=== PATIENT | male | born 1955 | race Caucasian/White ===

== ENCOUNTER 2017-04-08 09:00 | Day surgery (SDC) | payer OTHER, SELFPAY ==
[2017-04-06 14:48] VITALS: BMI 38.4
[2017-04-08 09:27] VITALS: BP 157/93; PULSE 76; RESP 18; TEMP 36.8; O2SAT 94
--- NOTE | 2017-04-08 09:39 | HMH.ANESCL ---
[facility] Anesthesia Checklist - Patient Identification Patient Identification: Arm Band, Verbal (Name & ) - Structural Data Admitted From: Home Planned Operative Procedure/s: egd/ colon Consent for Planned Operative Procedure(s) Verified: Yes Verified Documents: Surgical Consent - NPO Status Verified Time NPO: 00:00 - Chart Verification Results Verified: CBC, BMP - Additional verifications Patient : No Anesthesia Reactions: No Hx Blood Transfusions: No Blood Transfusion Reaction: No Cephalosporin Allergy: No Previous Colonoscopy: No - Cardiovascular Assessment Heart Sounds: S1 & S2 Pulse Strength: Baseline Pulse Rhythm: Regular Peripheral Edema: No - Airway Assessment C-Spine Mobility Assessed: Yes TMJ Mobility Assessed: Yes Dentition: Dentures-good fit - Neurological Assessment Level of Consciousness: Awake, Alert, Appropriate Hx Seizures: No Numbness or tingling in extremities: No - Anesthesia Plan Anesthesia Risk discussed: Yes Anesthesia Plan: Verified ASA Class: III Anesthesia Type: [facility] Anesthesia HX I have reviewed the patient's past medical history: Yes Medical History: Reports:: Asthma, Hyperlipidemia, Hypertension Denies:: Diabetes Mellitus Type 1, Diabetes Mellitus Type 2, Lung Disease Other Medical History: Reports: Anemia Laterality Cases: Bilateral: Arthroscopy Knee Other Surgeries: Yes: Colonoscopy Amputation: No Fractures: No *Family Hx:: Unable to obtain
[2017-04-08 09:50] VITALS: O2SAT 98
[2017-04-08 09:50] LABS: Basophils % 0.2 % (0.1-2.0); Eosinophils # 0.2 K/mm3 (0.0-0.4); Eosinophils % 6.1 % (0.1-12.0); Hemoglobin 9.4 g/dL (14.1-18.0); Lymphocytes # 0.7 K/mm3 (0.7-4.5); Lymphocytes % 27.9 K/mm3 (10-50); Mean Corpuscular HGB Conc 30.3 g/dL (31.8-35.4); Mean Corpuscular Hemoglobin 23.8 pg (27.0-31.2); Mean Corpuscular Volume 78.5 fl (80-94); Mean Platelet Volume 7.8 fl (7.4-10.4); Monocytes # 0.2 K/mm3 (0.1-1.0); Monocytes % 8.8 % (1.7-9.3); Neutrophils # 1.5 K/mm3 (1.8-7.8); Neutrophils % 56.9 % (37.0-80.0); Platelet Count 80 K/mm3 (142-424); Red Blood Count 3.95 M/mm3 (4.60-6.20); Red Cell Distribution Width 16.2 % (11.5-17.5); White Blood Count 2.6 K/mm3 (4.8-10.8)
[2017-04-08 09:53] LABS: Anion Gap 11.8 mEq/L (5-15); Blood Urea Nitrogen 13 mg/dL (7-18); Carbon Dioxide 27 mmol/L (21.0-32.0); Chloride 104 mmol/L (98-107); Creatinine Clearance Estimated 117 mL/min (0-300); Creatinine,Serum 1.08 mg/dL (0.70-1.30); Estimated Glomerular Filt Rate 69 ml/min (>60); GFR (African American) 84 ML/MIN (>60); Glucose 98 mg/dL (74-106); Potassium 3.8 mmoL/L (3.5-5.1); Sodium 139 mmol/L (136-145)
--- NOTE | 2017-04-08 10:46 | P.PCN_ITS ---
- Procedure: Date: 04/08/17 Procedure Performed:: Esophagogastroduodenoscopy with biopsy Colonoscopy with polypectomy by means other than snare (biopsy) Indications:: This is a 61-year-old gentleman seen in consultation from Dr. Dykes for evaluation regarding anemia. Performing Provider:: Chace Bhardwaj MD Referring Provider:: Dr. Dykes Sedation:: Monitored anesthesia care Procedure:: After informed consent was obtained, the patient was taken to the endoscopy suite. Monitored anesthesia care ensued after he was transferred to the left lateral decubitus position. The gastroscope was advanced. The gastroesophageal junction was at 30 cm. Stomach was entered. The gastric mucosa did have a cobblestone type appearance. Mid gastric body biopsies were made. Streaking gastritis was noted distally and antral biopsies were obtained. Retroflexion revealed some inflammation but no other definitive abnormality. He did not have appropriate gastric relaxation and evaluation of the gastroesophageal junction (particularly in retroflexion) was very difficult and limited. The gastroscope was carefully removed. Digital rectal expelled a somewhat firm prostate but no definitive mass lesion was noted. The colonoscope was placed in position. The entire colon was evaluated. Bowel preparation was moderate to poor with large volume irrigation and suctioning used to improve visualization. A polyp at 25 cm is excised biopsy forceps. Adjacent polyps at 15 cm were excised with cold biopsy forceps. Polyp at 10 cm was excised with cold biopsy forceps. He did have hemorrhoidal cushions. No active bleeding or thrombosis was noted. He had fairly severe spasticity/lack of relaxation and this combined with limited bowel preparation made visualization difficult. The colonoscope was carefully removed and the patient was transferred to recovery. Findings:: Streaking gastritis cobblestone gastritis Gastroesophageal junction at 30 cm Lack of relaxation of gastric body leading to limited visualization Limited bowel preparation Spasticity and lack of relaxation of colon Hemorrhoidal cushions Firm prostate Polyp at 25 cm Adjacent polyps at 15 cm Polyp at 10 cm Specimens:: Antral biopsy Mid gastric body biopsy Polyp at 25 cm Adjacent polyps at 15 cm Polyp at 10 cm Recommendations:: Repeat colonoscopy is pending pathology but will likely be between 1-2 years secondary to limited visualization. UGI/SBFT and possible barium enema will be considered secondary to difficulty in visualization and for further evaluation and management of anemia. Possible capsule endoscopy. Complications:: No immediate Estimated blood obtained (mL): 1
[2017-04-08 10:55] VITALS: BP 114/94; PULSE 68; RESP 18; O2SAT 94
[2017-04-08 11:05] VITALS: BP 104/56; PULSE 62; RESP 18; O2SAT 96
[2017-04-08 13:29] VITALS: BP 104/65; PULSE 74; RESP 18; TEMP 36.5; O2SAT 94
== END 2017-04-08 11:05 | disposition home or self-care (01) ==
PROVIDERS: Family Provider Internal Medicine Adolescent Medicine; PCP Internal Medicine Adolescent Medicine; Visit Provider Surgery
PROC: 0DJ08ZZ Inspection of Upper Intestinal Tract, Via Natural or Artificial Opening Endoscopic (ICD-10-PCS; CPT 43235; principal; 2017-04-08 09:30)
DX: K29.60 Other gastritis without bleeding (principal); K64.8 Other hemorrhoids
CPT/HCPCS: 43239; 45380; 80048; 85025; 93005

== ENCOUNTER → 2017-05-04 08:54 | Outpatient (CLI) | payer OTHER, SELFPAY ==
--- NOTE | 2017-05-04 09:00 | FL_ITS ---
FL upper GI small bowel HISTORY: ITS.REASON: gastritis,anemia ORDERING PHYSICIAN: Chace Bhardwaj MD PATIENT AGE: 61 years COMPARISON: None FINDINGS: The esophagus, stomach, and duodenum have an unremarkable appearance. There is no evidence of hiatal hernia. No ulcer or mass evident. No mucosal abnormalities apparent. There is normal peristalsis. The duodenal C-loop is nondisplaced. Small bowel has an unremarkable appearance. No small bowel dilatation, mass, or mucosal body is evident. The appendix didn't fill. Terminal ileum has an unremarkable appearance. FLUOROSCOPY TIME : 2 minutes and 21 seconds. IMPRESSION: Negative upper GI with small bowel follow-through
== END ==
PROVIDERS: Family Provider Internal Medicine Adolescent Medicine; PCP Internal Medicine Adolescent Medicine; Visit Provider Surgery
DX: K29.70 Gastritis, unspecified, without bleeding (principal); D64.9 Anemia, unspecified
CPT/HCPCS: 74245; 74247; 74250

== ENCOUNTER → 2017-05-10 10:23 | Outpatient (CLI) | payer OTHER, SELFPAY ==
[2017-05-10 10:41] LABS: Hematocrit 28.9 % (42.0-52.0); Hemoglobin 8.7 g/dL (14.1-18.0)
== END ==
PROVIDERS: Visit Provider Surgery
DX: D64.9 Anemia, unspecified (principal)
CPT/HCPCS: 36415; 85014; 85018

== ENCOUNTER → 2018-02-03 07:13 | Outpatient (CLI) | payer OTHER, SELFPAY ==
[2018-02-03 07:16] LABS: Microscopic, Urine URINE MICROSCOPIC (MICROSCOPIC)
[2018-02-03 07:28] LABS: Appearance,Urine SL CLOUDY (Clear); Bilirubin,Urine Negative (Negative); Blood, Urine Negative (Negative); Color,Urine YELLOW (Yellow); Glucose,Urine (UA) Negative (Negative); Ketones,Urine Negative (Negative); Leukocyte Esterase,Urine 1+ (Negative); Nitrate,Urine Negative (Negative); Protein,Urine Negative (Negative); Specific Gravity, Urine >= 1.030 (1.005-1.030); Urobilinogen,Urine 0.2 EU/dl (0.2)
[2018-02-03 07:52] LABS: Bacteria,Urine Trace /lpf; WBC,Urine 50-100 #/hpf (0-3)
[2018-02-03 08:14] LABS: Basophils % 0.5 % (0.1-2.0); Eosinophils # 0.2 K/mm3 (0.0-0.4); Eosinophils % 8.8 % (0.1-12.0); Hematocrit 26.2 % (42.0-52.0); Lymphocytes # 0.4 K/mm3 (0.7-4.5); Lymphocytes % 23.6 % (10-50); Mean Corpuscular HGB Conc 28.6 g/dL (31.8-35.4); Mean Corpuscular Hemoglobin 21.5 pg (27.0-31.2); Mean Corpuscular Volume 75.1 fl (80-94); Mean Platelet Volume 7.4 fl (7.4-10.4); Monocytes # 0.2 K/mm3 (0.1-1.0); Monocytes % 8.5 % (1.7-9.3); Neutrophils # 1.1 K/mm3 (1.8-7.8); Neutrophils % 58.6 % (37.0-80.0); Platelet Count 78 K/mm3 (142-424); Red Blood Count 3.49 M/mm3 (4.60-6.20); Red Cell Distribution Width 16.5 % (11.5-17.5); White Blood Count 1.8 K/mm3 (4.8-10.8)
[2018-02-03 08:17] LABS: Hemoglobin 7.5 g/dL (14.1-18.0)
[2018-02-03 09:34] LABS: Alanine Aminotransferase 38 U/L (12-78); Albumin Level 2.9 gm/dL (3.4-5.0); Albumin/Globulin Ratio 0.6 (1.1-1.8); Alkaline Phosphatase 92 U/L (46-116); Anion Gap 12.1 mEq/L (5-15); Aspartate Amino Transferase 35 U/L (15-37); Bilirubin,Total 0.4 mg/dL (0.2-1.0); Blood Urea Nitrogen 15 mg/dL (7-18); Calcium 8.4 mg/dL (8.5-10.1); Carbon Dioxide 26 mmol/L (21.0-32.0); Chloride 110 mmol/L (98-107); Chol/HDL Ratio 3.1 (1-3.5); Cholesterol 126 mg/dL (140-200); Creatinine,Serum 1.05 mg/dL (0.70-1.30); Estimated Glomerular Filt Rate 71 ml/min (>60); GFR (African American) 86 ML/MIN (>60); Globulin 4.9 gm/dl (1.3-3.2); Glucose 119 mg/dL (74-106); HDL Cholesterol 41 mg/dL (27-67); LDL Cholesterol 70 mg/dL (0-130); Potassium 4.1 mmoL/L (3.5-5.1); Prostate Specific Ag Screen 14.9 ng/mL (0.0-4.0); Sodium 144 mmol/L (136-145); Total Protein,Serum 7.8 gm/dL (6.4-8.2); Triglycerides 74 mg/dL (30-200); VLDL Cholesterol 15 mg/dL (0-40)
== END ==
PROVIDERS: Visit Provider Internal Medicine Adolescent Medicine
DX: K76.0 Fatty (change of) liver, not elsewhere classified (principal); I67.9 Cerebrovascular disease, unspecified; I10 Essential (primary) hypertension; R30.0 Dysuria
CPT/HCPCS: 36415; 80053; 80061; 81001; 85025; 87086; 87088; 87186; G0103

== ENCOUNTER → 2018-02-07 09:17 | Outpatient (CLI) | payer OTHER, SELFPAY ==
[2018-02-07 09:34] LABS: MANUAL DIFFERENTIAL MANUAL DIFFERENTIAL (MANUAL DIFF)
[2018-02-07 10:24] LABS: Basophils % 0.7 % (0.1-2.0); Eosinophils # 0.1 K/mm3 (0.0-0.4); Eosinophils % 7.3 % (0.1-12.0); Hematocrit 27.1 % (42.0-52.0); Lymphocytes # 0.4 K/mm3 (0.7-4.5); Lymphocytes % 19.3 % (10-50); Mean Corpuscular HGB Conc 28.1 g/dL (31.8-35.4); Mean Corpuscular Hemoglobin 21.3 pg (27.0-31.2); Mean Corpuscular Volume 75.8 fl (80-94); Monocytes # 0.1 K/mm3 (0.1-1.0); Monocytes % 5.4 % (1.7-9.3); Neutrophils # 1.3 K/mm3 (1.8-7.8); Neutrophils % 67.4 % (37.0-80.0); Platelet Count 83 K/mm3 (142-424); Red Blood Count 3.58 M/mm3 (4.60-6.20); Red Cell Distribution Width 16.5 % (11.5-17.5); White Blood Count 1.9 K/mm3 (4.8-10.8)
[2018-02-07 10:29] LABS: Hemoglobin 7.6 g/dL (14.1-18.0)
[2018-02-07 10:55] LABS: Eosinophils % 10 % (0-3); Lymphocytes % 14 % (10-50); Monocytes % 8 % (2-9); Neutrophils % 66 % (42-76); Platelet Estimate Slight Decrease; Total Cells Counted 50
[2018-02-07 10:56] LABS: Microcytosis 1+
[2018-02-07 11:04] LABS: Rouleaux 1+
[2018-02-08 11:19] LABS: PSA, Free 4.02 ng/mL; Prostate Specific Ag 14.6 ng/mL (0.0-4.0)
[2018-02-09 09:27] LABS: Peripheral Smear Review Scanned Result
[2018-02-09 13:13] LABS: Albumin 3.1 g/dL (2.9-4.4); Alpha-1-Globulin 0.3 g/dL (0.0-0.4); Alpha-2-Globulin 0.7 g/dL (0.4-1.0); Gamma Globulin 2.7 g/dL (0.4-1.8)
== END ==
PROVIDERS: Visit Provider Internal Medicine Adolescent Medicine
DX: D61.818 Other pancytopenia (principal); R97.20 Elevated prostate specific antigen [PSA]
CPT/HCPCS: 36415; 84153; 84154; 84155; 84165; 85007; 85014; 85018; 85048; 85049; 86850

== ENCOUNTER → 2018-03-03 09:56 | Outpatient (CLI) | payer OTHER, SELFPAY ==
--- NOTE | 2018-03-03 10:02 | NM_ITS ---
NM liver and spleen static CLINICAL INDICATION: ITS.REASON: PANCYTOPENIA ORDERING PHYSICIAN: Heather Peacock MD PATIENT AGE: 62 years Comparison: None DOSE: TECHNIQUE: Static images are obtained of the abdomen. There is homogeneous activity within the liver and spleen. There is mild splenomegaly at 16 cm. There is mild degree of bone marrow activity noted. No photopenic areas are identified. IMPRESSION: Mild splenomegaly. Mild bone marrow activity noted indicating hepatocellular dysfunction
== END ==
PROVIDERS: PCP Internal Medicine Adolescent Medicine; Visit Provider Internal Medicine Medical Oncology
DX: D61.818 Other pancytopenia (principal)
CPT/HCPCS: 78215; A9541

== ENCOUNTER 2018-03-14 10:50 | Observation (INO) ==
[2018-03-14 11:21] LABS: Eosinophils # 0.2 K/mm3 (0.0-0.4); Lymphocytes # 0.5 K/mm3 (0.7-4.5); Monocytes # 0.1 K/mm3 (0.1-1.0); Neutrophils # 1.8 K/mm3 (1.8-7.8); White Blood Count 2.6 K/mm3 (4.8-10.8)
[2018-03-14 11:26] LABS: Basophils % 0.6 % (0.1-2.0); Eosinophils % 8.4 % (0.1-12.0); Lymphocytes % 19.1 % (10-50); Mean Corpuscular HGB Conc 27.9 g/dL (31.8-35.4); Mean Corpuscular Hemoglobin 22.1 pg (27.0-31.2); Mean Corpuscular Volume 79.3 fl (80-94); Mean Platelet Volume 9.8 fl (7.4-10.4); Monocytes % 4.7 % (1.7-9.3); Neutrophils % 67.3 % (37.0-80.0); Platelet Count 111 K/mm3 (142-424); Red Blood Count 2.44 M/mm3 (4.60-6.20); Red Cell Distribution Width 20.7 % (11.5-17.5)
[2018-03-14 11:28] LABS: Hematocrit 19.4 % (42.0-52.0); Hemoglobin 5.4 g/dL (14.1-18.0)
--- NOTE | 2018-03-14 15:19 | Pharmacy Consult Notes ---
[facility] Pharmacy VTE Monitoring - Patient Demographics Admission date: 03/14/18 Report Date: 03/14/18 Time: 15:19 Allergies/Adverse Reactions: Patient Allergies ciprofloxacin [From Cipro] Allergy (Unknown, Verified 03/14/18 13:44) CHICKEN BROTH Allergy (Severe, Uncoded 03/14/18 13:44) Difficulty Breathing Chicken Meat Allergy (Severe, Uncoded 03/14/18 13:44) Difficulty Breathing Height: 1.75 m Weight: 116.687 kg - VTE Risk Labs: VTE Related Lab Results Hgb 5.4 g/dL (14.1-18.0) L* 03/14/18 11:12 Hct 19.4 % (42.0-52.0) L* 03/14/18 11:12 Plt Count 111 K/mm3 (142-424) L 03/14/18 11:12 Was VTE Risk Assessment Performed: Yes VTE Score: 4 VTE Risk Level: Low Risk - Prophylaxis VTE Prophylaxis Ordered?: Yes Types of VTE Prophylaxis: TEDS Knee High Location of Applied Device: Bilateral Lower Extremeties
--- NOTE | 2018-03-14 19:15 | History & Physical Report ---
*Admission Date: 03/14/18 *Chief complaint: Anemia secondary to iron deficiency *History of present illness: 62-year-old white male who has been diagnosed with symptomatic anemia over the past couple of months ago after he presented to my office with pallor and fatigue. Studies showing iron deficiency, confirmed by bone biopsy of weeks ago. He has begun having iron therapy, and printed to the outpatient infusion area this morning for his normal infusion but nursing staff noticed that he was extremely pale and he reported weakness and fatigue. Hemoglobin drawn which was 5.4 g. Admitted for transfusion. Workup in the past, specifically May 2017 showed EGD with minimal gastritis and colonoscopy was negative for causes of bleeding. He has had an episode suspicious pancreas lesion 2016 which resulted in endoscopic ultrasound done at [facility] which was negative for latency or other pathology. There were gastric varices noted at the time which were not noted on the scope in May 2017. Never had small bowel evaluation. Specifically denies melena, hematochezia or other GI evidence of blood loss. [facility] History I have reviewed the patient's past medical history: Yes Medical History: Reports:: Asthma, Hyperlipidemia, Hypertension Denies:: Cancer, Diabetes Mellitus Type 1, Diabetes Mellitus Type 2, Internal Pacemaker, Lung Disease, MRSA, Seizures Have you ever received a pneumonia vaccine?: No (Refused) Have you received a flu vaccine this season?: No (Refused) Other Medical History: Reports: Anemia, Arthritis (OA), Liver Disease (Fatty liver disease/nonalcoholic steatosis). Denies: Blood Transfusion Reaction Laterality Cases: Bilateral: Arthroscopy Knee Other Surgeries: Yes: Cardiac Catheterization, Colonoscopy, EGD. No: Pacemaker Amputation: No Fractures: No - *Social History Educational Level: Completed College Smoking Status: Never smoker Alcohol Intake: never Substance Use Type: denies use Occupational Status: employed Housing: house Household Members: spouse Travel in the last 8 weeks: Inside the [facility] - Psychiatric History Expresses thoughts of harming self/others: None Suicide Plan Description: No Plan *Family Hx:: Anemia, Cancer, Coronary Artery Disease, Diabetes, Heart Attack Review of Systems - Review of Systems Review of systems:: pertinent systems reviewed and negative unless documented below See H&P for review of systems documentation. Denies cardiac symptoms. Reports malaise and fatigue. Reports some dyspnea with exertion, no cough, no congestion. GI negative as noted. Neurologic negative. Skin negative. Does have a history of recurrent prostatitis. I treated him last week with amoxicillin/clavulanate which he is still taking. Meds Home Medications Medication Instructions Recorded Confirmed Type aspirin 81 mg tablet,delayed 81 mg PO DAILY 03/17/17 03/14/18 History release atorvastatin 40 mg tablet 40 mg PO HS 03/17/17 03/14/18 History clopidogrel 75 mg tablet 75 mg PO DAILY 03/17/17 03/14/18 History lisinopril 10 mg tablet 10 mg PO DAILY 03/17/17 03/14/18 History tamsulosin 0.4 mg capsule 0.4 mg PO DAILY 03/17/17 03/14/18 History [id number]-lms-tnzbb acid 300 1 tab PO DAILY 02/24/18 03/14/18 History mcg-lycopene 600 mcg-lutein 300 mcg tablet Amoxicillin/Potassium Clav 1 tab PO BID 03/14/18 03/14/18 History [Amox-Clav 875-125 mg Tablet] Budesonide/Formoterol Fumarate 2 puff IH BID 03/14/18 03/14/18 History [Symbicort 160-4.5 Mcg Inhaler] Ferrous Gluconate 27 mg PO DAILY 03/14/18 03/14/18 History Nadolol [Corgard 20mg tablet] 20 mg PO DAILY 03/14/18 03/14/18 History Allergies Allergy/AdvReac Type Severity Reaction Status Date / Time ciprofloxacin [From Cipro] Allergy Unknown Verified 03/14/18 13:44 CHICKEN BROTH Allergy Severe Difficulty Uncoded 03/14/18 13:44 Breathing Chicken Meat Allergy Severe Difficulty Uncoded 03/14/18 13:44 Breathing Exam Vital signs and Labs for Last 24 Hours: Temp Pulse Resp BP Pulse Ox 98.6 F 76 18 135/67 97 03/14/18 18:10 03/14/18 18:10 03/14/18 18:10 03/14/18 18:10 03/14/18 18:10 Laboratory Results - last 24 hr 03/14/18 11:12: WBC 2.6 L, RBC 2.44 L, Hgb 5.4 L*, Hct 19.4 L*, MCV 79.3 L, MCH 22.1 L, MCHC 27.9 L, RDW 20.7 H, Plt Count 111 L, MPV 9.8, Neut % (Auto) 67.3, Lymph % (Auto) 19.1, [place] % (Auto) 4.7, Eos % (Auto) 8.4, Baso % (Auto) 0.6, Neut # (Auto) 1.8, Lymph # (Auto) 0.5 L, [place] # (Auto) 0.1, Eos # (Auto) 0.2, Baso # (Auto) 0.0 03/14/18 11:12: Blood Type A Positive, Antibody Screen Negative, Crossmatch (AHG) See Detail I & O for Last 24 hours: Intake & Output 03/12/18 03/13/18 03/14/18 03/15/18 11:59 11:59 11:59 11:59 Intake Total 1448 / 1448 Output Total 200 / 200 Balance 1248 / 1248 Weight 255 lb 257 lb 4 oz Narrative: Patient is alert. Oriented to 3. Oropharynx clear, no JVD. Very pale. Heart regular. No tachycardia. Murmurs. Lungs are clear. Abdomen soft, obese. No stigmata of liver disease. Other than the pallor extremities are good with good distal perfusion. Neurologic exam nonfocal. Assessment and Plan (1) Anemia, iron deficiency Current visit: Yes Status: Acute Category: Medical Code(s): D50.9 - Iron deficiency anemia, unspecified Well-established diagnosis via bone marrow biopsy. Transfuse 2 units and reevaluate. Will probably need 4 units total. Will consider video capsule enteroscopy to rule out small bowel blood loss after discharge. Anticipate discharge tomorrow.
[2018-03-14 19:33] LABS: Hemoglobin 6.9 g/dL (14.1-18.0)
[2018-03-15 06:54] LABS: Basophils % 0.3 % (0.1-2.0); Eosinophils # 0.3 K/mm3 (0.0-0.4); Eosinophils % 10.3 % (0.1-12.0); Hematocrit 25.9 % (42.0-52.0); Lymphocytes # 0.6 K/mm3 (0.7-4.5); Lymphocytes % 22.1 % (10-50); Mean Corpuscular HGB Conc 30.5 g/dL (31.8-35.4); Mean Corpuscular Hemoglobin 24.9 pg (27.0-31.2); Mean Corpuscular Volume 81.6 fl (80-94); Mean Platelet Volume 8.2 fl (7.4-10.4); Monocytes # 0.2 K/mm3 (0.1-1.0); Monocytes % 7.9 % (1.7-9.3); Neutrophils # 1.5 K/mm3 (1.8-7.8); Neutrophils % 59.4 % (37.0-80.0); Platelet Count 113 K/mm3 (142-424); Red Blood Count 3.17 M/mm3 (4.60-6.20); Red Cell Distribution Width 19.8 % (11.5-17.5); White Blood Count 2.6 K/mm3 (4.8-10.8)
[2018-03-15 07:02] LABS: Anion Gap 11.1 mEq/L (5-15); Calcium 8.1 mg/dL (8.5-10.1); Potassium 4.1 mmoL/L (3.5-5.1)
[2018-03-15 07:10] LABS: Hemoglobin 7.9 g/dL (14.1-18.0)
--- NOTE | 2018-03-15 08:09 | Discharge Summary ---
General - General Admission date:: 03/14/18 Discharge date: 03/15/18 HPI HPI: 62-year-old white male who has been diagnosed with symptomatic anemia over the past couple of months ago after he presented to my office with pallor and fatigue. Studies showing iron deficiency, confirmed by bone biopsy of weeks ago. He has begun having iron therapy, and printed to the outpatient infusion area this morning for his normal infusion but nursing staff noticed that he was extremely pale and he reported weakness and fatigue. Hemoglobin drawn which was 5.4 g. Admitted for transfusion. Workup in the past, specifically May 2017 showed EGD with minimal gastritis and colonoscopy was negative for causes of bleeding. He has had an episode suspicious pancreas lesion 2016 which resulted in endoscopic ultrasound done at [facility] which was negative for latency or other pathology. There were gastric varices noted at the time which were not noted on the scope in May 2017. Never had small bowel evaluation. Specifically denies melena, hematochezia or other GI evidence of blood loss. Hospital Course Hospital Course: Admitted to medicine for symptomatic anemia. No active bleeding. Held Plavix. Transfused 4 Units RBCs. Responded well with improvement on SOA, fatigue and improved hgb to 7.9. Medically stable for C home. Restarted 81mg ASA. DC'd plavix on DC as TIA was >3 yrs ago. risk out weighs benefit at this time. Follow-up in [address] Dykes to get clearance for returning to work. Would benefit from capsule endoscopy to assess for obscure sites of GI/Small B owel bleeding. Will pursue in outpatient setting. Afebrile, no melena, No N/V, STEWART, SOA, CP. Objective Vital signs: Temp Pulse Resp BP Pulse Ox 98.4 F 69 18 140/84 99 03/15/18 07:58 03/15/18 07:58 03/15/18 07:58 03/15/18 07:58 03/15/18 07:58 - *Routine HEENT Exam Head: Present: normocephalic, atraumatic Eye: Present: EOMI, PERRL ENT: Present: mucous membranes moist - *Routine Neck Exam Present: supple. Absent: JVD - *Routine Respiratory Exam Present: CTA bilaterally. Absent: prolonged expiratory phase, rales - *Routine Cardiovascular Exam Present: RRR, Normal S1. Absent: murmur - *Routine Abdominal Exam Present: soft, normoactive bowel sounds. Absent: tenderness - *Routine Rectal Exam Patient deferred: visual exam - *Routine Exam Patient deferred: penile exam - *Routine Extremities Exam Absent: cyanosis, clubbing, edema - *Routine Skin Exam Present: intact, pallor. Absent: cyanosis, erythema - *Routine Neurological Exam Present: alert, oriented X3. Absent: altered mental status Results Labs on day of discharge: Labs from last 24 hours 03/15/18 03/15/18 03/14/18 06:28 06:28 19:11 WBC 2.6 L RBC 3.17 L D Hgb 7.9 L* 6.9 L* D Hct 25.9 L 23.0 L* MCV 81.6 MCH 24.9 L MCHC 30.5 L RDW 19.8 H Plt Count 113 L MPV 8.2 Neut % (Auto) 59.4 Lymph % (Auto) 22.1 [place] % (Auto) 7.9 Eos % (Auto) 10.3 Baso % (Auto) 0.3 Neut # (Auto) 1.5 L Lymph # (Auto) 0.6 L [place] # (Auto) 0.2 Eos # (Auto) 0.3 Baso # (Auto) 0.0 Sodium 142 Potassium 4.1 Chloride 108 H Carbon Dioxide 27 Anion Gap 11.1 BUN 12 Creatinine 1.10 Estimated Creat Clear 112 Estimated GFR 67 Est GFR ( Amer) 82 Glucose 102 Calcium 8.1 L Blood Type Antibody Screen Crossmatch ([facility]) 03/14/18 03/14/18 11:12 11:12 WBC 2.6 L RBC 2.44 L Hgb 5.4 L* Hct 19.4 L* MCV 79.3 L MCH 22.1 L MCHC 27.9 L RDW 20.7 H Plt Count 111 L MPV 9.8 Neut % (Auto) 67.3 Lymph % (Auto) 19.1 [place] % (Auto) 4.7 Eos % (Auto) 8.4 Baso % (Auto) 0.6 Neut # (Auto) 1.8 Lymph # (Auto) 0.5 L [place] # (Auto) 0.1 Eos # (Auto) 0.2 Baso # (Auto) 0.0 Sodium Potassium Chloride Carbon Dioxide Anion Gap BUN Creatinine Estimated Creat Clear Estimated GFR Est GFR ( Amer) Glucose Calcium Blood Type A Positive Antibody Screen Negative Crossmatch ([facility]) See Detail DS: Diagnosis - Discharge Diagnosis (1) Anemia, iron deficiency Status: Acute Discharge Plan - Patient Discharge Instructions ACTIVITY: Continue current activity DIET: continue same diet Patient Instructions: DI for Iron Deficiency Anemia-Adult - Follow up Plan Follow up with: Malik Dykes MD [Primary Care Provider] - Disposition: Home, Self-Longterm Medications: Home Medications Medication Instructions Recorded Confirmed Type aspirin 81 mg tablet,delayed 81 mg PO DAILY 03/17/17 03/14/18 History release atorvastatin 40 mg tablet 40 mg PO HS 03/17/17 03/14/18 History lisinopril 10 mg tablet 10 mg PO DAILY 03/17/17 03/14/18 History [id number]-gpa-ogghi acid 300 1 tab PO DAILY 02/24/18 03/14/18 History mcg-lycopene 600 mcg-lutein 300 mcg tablet RX: Amoxicillin/Potassium Clav 1 tab PO BID 03/14/18 03/14/18 History [Amox-Clav 875-125 mg Tablet] RX: Budesonide/Formoterol Fumarate 2 puff IH BID 03/14/18 03/14/18 History [Symbicort 160-4.5 Mcg Inhaler] RX: Ferrous Sulfate [High Potency 27 mg PO DAILY 03/14/18 03/15/18 History Iron] RX: Nadolol [Corgard 20mg tablet] 20 mg PO DAILY 03/14/18 03/14/18 History RX: Tamsulosin HCl [Flomax 0.4mg 0.4 mg PO DAILY 03/15/18 03/15/18 History capsule] Prescriptions/Medication Reconciliation: Continue aspirin 81 mg tablet,delayed release 81 mg PO DAILY atorvastatin 40 mg tablet 40 mg PO HS lisinopril 10 mg tablet 10 mg PO DAILY kwrbmajg-vox-kmvgq acid 300 mcg-lycopene 600 mcg-lutein 300 mcg tablet 1 tab PO DAILY RX: Budesonide/Formoterol Fumarate [Symbicort 160-4.5 Mcg Inhaler] 2 puff IH BID RX: Amoxicillin/Potassium Clav [Amox-Clav 875-125 mg Tablet] 1 tab PO BID RX: Tamsulosin HCl [Flomax 0.4mg capsule] 0.4 mg PO DAILY RX: Nadolol [Corgard 20mg tablet] 20 mg PO DAILY RX: Ferrous Sulfate [High Potency Iron] 27 mg PO DAILY Discontinued clopidogrel 75 mg tablet 75 mg PO DAILY
== END 2018-03-15 10:59 | disposition home or self-care (01) ==
LOC: INF 10:50 → 2ND 10:50
PROVIDERS: ADMIT Internal Medicine Adolescent Medicine; ATTEND Internal Medicine Adolescent Medicine
CPT/HCPCS: 36415; 80048; 85014; 85018; 85025; 86850; 90686; 90732; 96365; G0378; J1439; P9016

== ENCOUNTER 2018-03-21 11:18 | Outpatient (CLI) | payer OTHER, SELFPAY ==
[2018-03-21 11:45] VITALS: BP 135/77; PULSE 68; RESP 18; TEMP 36.6; O2SAT 98
[2018-03-21 12:30] VITALS: BP 130/73; PULSE 64; RESP 18
== END 2018-03-21 12:30 | disposition home or self-care (01) ==
LOC: INF 11:18
PROVIDERS: Visit Provider Internal Medicine Medical Oncology
DX: D50.9 Iron deficiency anemia, unspecified (principal)
CPT/HCPCS: 96365; J1439

== ENCOUNTER → 2018-03-23 12:54 | Outpatient (CLI) | payer OTHER, SELFPAY ==
[2018-03-23 13:48] LABS: Basophils % 0.5 % (0.1-2.0); Eosinophils # 0.2 K/mm3 (0.0-0.4); Eosinophils % 7.6 % (0.1-12.0); Hematocrit 32.1 % (42.0-52.0); Hemoglobin 9.8 g/dL (14.1-18.0); Lymphocytes # 0.5 K/mm3 (0.7-4.5); Lymphocytes % 21.5 % (10-50); Mean Corpuscular HGB Conc 30.3 g/dL (31.8-35.4); Mean Corpuscular Hemoglobin 26.4 pg (27.0-31.2); Mean Corpuscular Volume 87.1 fl (80-94); Mean Platelet Volume 8.4 fl (7.4-10.4); Monocytes # 0.2 K/mm3 (0.1-1.0); Monocytes % 7.5 % (1.7-9.3); Neutrophils # 1.5 K/mm3 (1.8-7.8); Neutrophils % 62.9 % (37.0-80.0); Platelet Count 86 K/mm3 (142-424); Red Blood Count 3.69 M/mm3 (4.60-6.20); Red Cell Distribution Width 22.3 % (11.5-17.5); White Blood Count 2.3 K/mm3 (4.8-10.8)
== END ==
PROVIDERS: Visit Provider Internal Medicine Adolescent Medicine
DX: D50.9 Iron deficiency anemia, unspecified (principal)
CPT/HCPCS: 36415; 85025

== ENCOUNTER → 2018-06-13 09:35 | Outpatient (CLI) | payer OTHER, SELFPAY ==
[2018-06-13 10:01] LABS: Activated Partial Thrombo Time 25.5 seconds (23.6-34.0); INR 1.08 (0.9-1.1); Prothrombin Time 11.1 seconds (9.4-11.8)
[2018-06-13 10:18] LABS: Hemoglobin 13.2 g/dL (14.1-18.0)
[2018-06-13 11:05] LABS: Alanine Aminotransferase 42 U/L (12-78); Albumin Level 3.2 gm/dL (3.4-5.0); Alkaline Phosphatase 87 U/L (46-116); Aspartate Amino Transferase 34 U/L (15-37); Bilirubin,Direct 0.2 mg/dL (0.0-0.2); Bilirubin,Indirect 0.5 mg/dL (0.0-0.9); Bilirubin,Total 0.7 mg/dL (0.2-1.0); Total Protein,Serum 8.4 gm/dL (6.4-8.2)
== END ==
PROVIDERS: Visit Provider Surgery
DX: R10.9 Unspecified abdominal pain (principal); K82.8 Other specified diseases of gallbladder; D50.9 Iron deficiency anemia, unspecified; K25.9 Gastric ulcer, unspecified as acute or chronic, without hemorrhage or perforation; Z86.010 Personal history of colon polyps
CPT/HCPCS: 36415; 80076; 85014; 85018; 85610; 85730

== ENCOUNTER → 2018-08-23 09:44 | Outpatient (CLI) | payer OTHER, SELFPAY ==
[2018-08-23 10:23] LABS: Basophils % 0.2 % (0.1-2.0); Eosinophils # 0.3 K/mm3 (0.0-0.4); Eosinophils % 8.7 % (0.1-12.0); Hematocrit 35.2 % (42.0-52.0); Hemoglobin 11.1 g/dL (14.1-18.0); Lymphocytes # 0.7 K/mm3 (0.7-4.5); Lymphocytes % 23.2 % (10-50); Mean Corpuscular HGB Conc 31.5 g/dL (31.8-35.4); Mean Corpuscular Hemoglobin 29.4 pg (27.0-31.2); Mean Corpuscular Volume 93.4 fl (80-94); Mean Platelet Volume 8.3 fl (7.4-10.4); Monocytes # 0.2 K/mm3 (0.1-1.0); Neutrophils # 1.7 K/mm3 (1.8-7.8); Neutrophils % 59.9 % (37.0-80.0); Platelet Count 82 K/mm3 (142-424); Red Blood Count 3.77 M/mm3 (4.60-6.20); White Blood Count 2.9 K/mm3 (4.8-10.8)
[2018-08-23 12:14] LABS: Alanine Aminotransferase 41 U/L (12-78); Albumin Level 2.9 gm/dL (3.4-5.0); Albumin/Globulin Ratio 0.6 (1.1-1.8); Alkaline Phosphatase 77 U/L (46-116); Anion Gap 12.2 mEq/L (5-15); Aspartate Amino Transferase 39 U/L (15-37); Bilirubin,Total 0.8 mg/dL (0.2-1.0); Blood Urea Nitrogen 13 mg/dL (7-18); Calcium 8.6 mg/dL (8.5-10.1); Carbon Dioxide 28 mmol/L (21.0-32.0); Chloride 108 mmol/L (98-107); Creatinine,Serum 1.09 mg/dL (0.70-1.30); Estimated Glomerular Filt Rate 68 ml/min (>60); GFR (African American) 82 ML/MIN (>60); Globulin 5.2 gm/dl (1.3-3.2); Glucose 114 mg/dL (74-106); Potassium 4.2 mmoL/L (3.5-5.1); Sodium 144 mmol/L (136-145); Total Protein,Serum 8.1 gm/dL (6.4-8.2)
== END ==
PROVIDERS: Visit Provider Internal Medicine Adolescent Medicine
DX: K76.0 Fatty (change of) liver, not elsewhere classified (principal); D72.819 Decreased white blood cell count, unspecified
CPT/HCPCS: 36415; 80053; 85025

== ENCOUNTER → 2019-02-13 13:10 | Outpatient (CLI) | payer OTHER, SELFPAY ==
[2019-02-13 13:30] LABS: Basophils % 0.3 % (0.1-2.0); Eosinophils # 0.3 K/mm3 (0.0-0.4); Eosinophils % 7.5 % (0.1-12.0); Hematocrit 29.9 % (42.0-52.0); Hemoglobin 9.5 g/dL (14.1-18.0); Lymphocytes # 0.9 K/mm3 (0.7-4.5); Lymphocytes % 21.1 % (10-50); Mean Corpuscular HGB Conc 31.7 g/dL (31.8-35.4); Mean Corpuscular Hemoglobin 27.4 pg (27.0-31.2); Mean Corpuscular Volume 86.5 fl (80-94); Mean Platelet Volume 10.7 fl (7.4-10.4); Monocytes # 0.3 K/mm3 (0.1-1.0); Monocytes % 7.1 % (1.7-9.3); Neutrophils # 2.7 K/mm3 (1.8-7.8); Platelet Count 109 K/mm3 (142-424); Red Blood Count 3.46 M/mm3 (4.60-6.20); Red Cell Distribution Width 15.8 % (11.5-17.5); White Blood Count 4.2 K/mm3 (4.8-10.8)
[2019-02-13 13:37] LABS: Alanine Aminotransferase 40 U/L (12-78); Albumin Level 2.7 gm/dL (3.4-5.0); Albumin/Globulin Ratio 0.6 (1.1-1.8); Alkaline Phosphatase 70 U/L (46-116); Anion Gap 12.5 mEq/L (5-15); Aspartate Amino Transferase 47 U/L (15-37); Bilirubin,Total 0.7 mg/dL (0.2-1.0); Blood Urea Nitrogen 24 mg/dL (7-18); Calcium 7.9 mg/dL (8.5-10.1); Carbon Dioxide 25 mmol/L (21.0-32.0); Chloride 109 mmol/L (98-107); Creatinine,Serum 1.01 mg/dL (0.70-1.30); Estimated Glomerular Filt Rate 74 ml/min (>60); GFR (African American) 90 ML/MIN (>60); Globulin 4.6 gm/dl (1.3-3.2); Glucose 100 mg/dL (74-106); Potassium 3.5 mmoL/L (3.5-5.1); Sodium 143 mmol/L (136-145); Total Protein,Serum 7.3 gm/dL (6.4-8.2)
== END ==
PROVIDERS: Visit Provider Internal Medicine Adolescent Medicine
DX: I95.1 Orthostatic hypotension (principal)
CPT/HCPCS: 36415; 80053; 85025

== ENCOUNTER 2019-02-16 01:16 | Observation (INO) ==
[2019-02-16 01:42] LABS: Microscopic, Urine URINE MICROSCOPIC (MICROSCOPIC)
[2019-02-16 01:45] LABS: Appearance,Urine CLEAR (Clear); Bilirubin,Urine Negative (Negative); Blood, Urine Negative (Negative); Color,Urine YELLOW (Yellow); Glucose,Urine (UA) Negative (Negative); Ketones,Urine Negative (Negative); Leukocyte Esterase,Urine Negative (Negative); PH,Urine 5.5 (5.0-8.5); Protein,Urine Negative (Negative); Specific Gravity, Urine 1.025 (1.005-1.030); Urobilinogen,Urine 0.2 EU/dl (0.2)
[2019-02-16 01:52] LABS: Basophils % 0.3 % (0.1-2.0); Eosinophils # 0.4 K/mm3 (0.0-0.4); Eosinophils % 4.5 % (0.1-12.0); Hematocrit 26.2 % (42.0-52.0); Hemoglobin 8.4 g/dL (14.1-18.0); Lymphocytes # 1.9 K/mm3 (0.7-4.5); Lymphocytes % 21.7 % (10-50); Mean Corpuscular HGB Conc 31.9 g/dL (31.8-35.4); Mean Corpuscular Volume 87.3 fl (80-94); Mean Platelet Volume 9.9 fl (7.4-10.4); Monocytes # 0.4 K/mm3 (0.1-1.0); Monocytes % 4.6 % (1.7-9.3); Neutrophils # 6.1 K/mm3 (1.8-7.8); Platelet Count 168 K/mm3 (142-424); Red Cell Distribution Width 16.8 % (11.5-17.5); White Blood Count 8.8 K/mm3 (4.8-10.8)
[2019-02-16 01:58] LABS: Alanine Aminotransferase 38 U/L (12-78); Albumin Level 2.6 gm/dL (3.4-5.0); Albumin/Globulin Ratio 0.6 (1.1-1.8); Alkaline Phosphatase 68 U/L (46-116); Amylase 45 U/L (25-115); Anion Gap 11.9 mEq/L (5-15); Aspartate Amino Transferase 36 U/L (15-37); Bilirubin,Total 0.9 mg/dL (0.2-1.0); Blood Urea Nitrogen 36 mg/dL (7-18); Carbon Dioxide 24 mmol/L (21.0-32.0); Chloride 107 mmol/L (98-107); Globulin 4.3 gm/dl (1.3-3.2); Glucose 110 mg/dL (74-106); Sodium 139 mmol/L (136-145); Total Protein,Serum 6.9 gm/dL (6.4-8.2)
[2019-02-16 01:59] LABS: Bacteria,Urine 1+ /lpf; Mucus,Urine 1+ /lpf
[2019-02-16 01:59] LABS: C-Reactive Protein < 0.2 mg/dL (0.0-0.9)
--- NOTE | 2019-02-16 02:13 | Emergency Department Note ---
ED Disposition Clinical Impression: Duodenitis, Splenomegaly, Orthostatic dizziness Abdominal pain Qualifiers: Abdominal location: lower abdomen, unspecified Qualified Code(s): R10.30 - Lower abdominal pain, unspecified Anemia Qualifiers: Anemia type: unspecified type Qualified Code(s): D64.9 - Anemia, unspecified Disposition: Admitted as Observation Condition on Discharge: Fair Instructions: DI for Acute Abdomen Referrals: Malik Dykes MD [Primary Care Provider] - - Critical Care Critical Care Time: No Attestation: On 02/16/19, the high probability of a clinically significant, sudden or life threatening deterioration of the following system(s) required my full and direct attention, intervention and personal management. The time I documented below is in addition to time spent performing reported procedures but includes the following listed in this critical care notation. Medical Decision Making - Medical Records Medical records reviewed: Yes: I reviewed the patient's medical records. - Alex Inquiry Pt receiving controlled substance: No Vital Signs: 02/16/19 01:29 02/16/19 01:44 Temperature 98.0 F Temperature Source Oral Pulse Rate [Orthostatic Lying Left Radial] 96 H Pulse Rate [Orthostatic Sitting Left Radial] 112 H Pulse Rate [Orthostatic Standing Left Radial] 117 H Pulse Rate [Right Radial] 108 H Respiratory Rate 16 Blood Pressure [Orthostatic Lying Right Arm] 109/62 L Blood Pressure [Orthostatic Sitting Right Arm] 97/60 L Blood Pressure [Orthostatic Standing Right Arm] 86/50 L Blood Pressure [Right Arm] 109/66 L Blood Pressure Mean [Right Arm] 80 02 Sat by Pulse Oximetry 99 Oxygen Delivery Method Room Air - Lab Data Lab results reviewed: Yes: I reviewed the patient's lab results. Lab Results 02/16/19 01:25: Urine Color Yellow, Urine Appearance Clear, Urine pH 5.5, Ur Specific [place] 1.025, Urine Protein Negative, Urine Glucose (UA) Negative, Urine Ketones Negative, Urine Blood Negative, Urine Nitrate Negative, Urine Bilirubin Negative, Urine Urobilinogen 0.2, Ur Leukocyte Esterase Negative, Urine WBC 3-5, Urine Bacteria 1+, Urine Mucus 1+ 02/16/19 01:30: WBC 8.8 D, RBC 3.00 L, Hgb 8.4 L, Hct 26.2 L, MCV 87.3, MCH 27.9, MCHC 31.9, RDW 16.8, Plt Count 168 D, MPV 9.9, Neut % (Auto) 69.0, Lymph % (Auto) 21.7, [place] % (Auto) 4.6, Eos % (Auto) 4.5, Baso % (Auto) 0.3, Neut # (Auto) 6.1, Lymph # (Auto) 1.9, [place] # (Auto) 0.4, Eos # (Auto) 0.4, Baso # (Auto) 0.0 02/16/19 01:30: Sodium 139, Potassium 3.9, Chloride 107, Carbon Dioxide 24, Anion Gap 11.9, BUN 36 H D, Creatinine 1.08, Estimated Creat Clear 112, Estimated GFR 69, Est GFR ( Amer) 83, Glucose 110 H, Calcium 8.7 D, Total Bilirubin 0.9, AST 36, ALT 38, Alkaline Phosphatase 68, Troponin I < 0.02, C-Reactive Protein < 0.2, Total Protein 6.9, Albumin 2.6 L, Globulin 4.3 H, Albumin/Globulin Ratio 0.6 L, Amylase 45, Lipase 256 Result diagrams: 02/16/19 01:30 02/16/19 01:30 Orders (Tests/Meds): ED MEDICATIONS Generic Name Dose Route Start Last Admin Trade Name Freq PRN Reason Stop Dose Admin Sodium Chloride 1,000 mls @ 999 mls/hr 02/16/19 01:45 02/16/19 01:46 Sod Chlor 0.9% 1000ml Bag IV 02/16/19 02:45 999 mls/hr .Q1H1M ZAHRAA Administration Discontinued Medications Generic Name Dose Route Start Last Admin Trade Name Freq PRN Reason Stop Dose Admin Ketorolac Tromethamine 30 mg 02/16/19 01:38 02/16/19 01:46 Toradol 30mg/Ml Vial IV 02/16/19 01:39 30 mg ONCE ONE Administration Ondansetron HCl 4 mg 02/16/19 01:38 02/16/19 01:46 Zofran 4mg/2ml Vial IV 02/16/19 01:39 4 mg ONCE ONE Administration Promethazine HCl 25 mg 02/16/19 02:45 Phenergan 25mg/Ml 1ml Vial IV 02/16/19 02:46 ONCE ONE Sodium Chloride 25 ml 02/16/19 02:45 Sod Chlor 0.9% 25ml Bag IV 02/16/19 02:46 ONCE ONE ORDERS Category Date Time Status CT abdomen pelvis w con Stat Cat Scan 02/16/19 01:34 Ordered Chest XR AP view [XR chest AP] Stat Exams 02/16/19 01:58 Ordered Complete Blood Count Auto Diff Stat Lab 02/16/19 01:30 Results Erythrocyte Sedimentation Rate Stat Lab 02/16/19 01:30 Results Troponin I Q3H Lab 02/16/19 04:45 Ordered Troponin I Q3H Lab 02/16/19 07:45 Ordered - Radiology Data #1 Image(s): Chest Image Reviewed: Yes I reviewed the patient's radiology image Preliminary Findings: Normal/NAD - CT Data CT Scan: Abdomen, Pelvis Time Received: 02:[address] Reviewed: Yes: I have viewed the radiologist's interpretation Preliminary Findings: Abnormal (see report ) - ECG Data Tracing #1 Arrhythmias present: sinus tach Ischemic changes: non-specific ST-T wave changes Nausea/Vomiting/Diarrhea HPI - General Chief complaint: Abdominal Pain Stated complaint: Nausea,abdominal pain Time Seen by Provider: 02/16/19 01:50 Mode of Arrival: Wheelchair Source of Information: Patient, Spouse, Medical Record Limitations: No Limitations Description of Symptoms (Recalled from ER Triage Doc. by RN): lower abdominal pain with nausea and vomiting since 4 days ago. patient also complains of dizziness. patient was seen by Dr. Whitten 02/13/2019 and had labs done and was supposed to go back in the morning for more lab work. patient states he feels worse than he did on Wednesday. - History of Present Illness HPI Narrative: lower abd pain assoc with vomiting but no melena or diarrhea - he had seen pcp wednesday - no diarrhea - hx of anemia - uncertain etiology - no fever - MD complaint: nausea, vomiting, abdominal pain Onset (ago): day(s) Associated Abdominal Pain: Yes Location of pain: LLQ Severity: moderate Quality: cramping Consistency: intermittent Associated symptoms: nausea/vomiting - Related Data Home Medications Medication Instructions Recorded Confirmed aspirin 81 mg tablet,delayed 81 mg PO DAILY 03/17/17 02/16/19 release atorvastatin 40 mg tablet 40 mg PO HS 03/17/17 02/16/19 lisinopril 10 mg tablet 10 mg PO DAILY 03/17/17 02/16/19 [id number] acid 300 1 tab PO DAILY 02/24/18 02/16/19 mcg-lycopene 600 mcg-lutein 300 mcg tablet Budesonide/Formoterol Fumarate 2 puff IH BID 03/14/18 02/16/19 [Symbicort 160-4.5 Mcg Inhaler] Ferrous Sulfate [High Potency Iron] 27 mg PO DAILY 03/14/18 02/16/19 nadoloL [Corgard 20mg tablet] 20 mg PO DAILY 03/14/18 02/16/19 Tamsulosin HCl [Flomax 0.4mg 0.4 mg PO DAILY 03/15/18 02/16/19 capsule] Sod Picosulf/Mag Ox/Citric AC 1 packet PO DAILY 07/14/18 02/16/19 [Prepopik] Allergies Allergy/AdvReac Type Severity Reaction Status Date / Time ciprofloxacin [From Cipro] Allergy Unknown Unknown Verified 02/16/19 01:47 allergy reaction chicken derived Allergy Difficulty Verified 02/16/19 01:47 Breathing [facility] History - Hepatitis A Screen Drug use history?: No High risk sexual behaviors?: No History of sexually transmitted infection?: No Currently employed?: No Childcare worker?: No Do you have indoor plumbing?: Yes Do you have electricity?: Yes Attestation statement:: This patient has been screened for Hepatitis A risk factors. I have reviewed the patient's past medical history: Yes Medical History: Reports:: Asthma, Cerebrovascular Accident, Gastroesophageal Reflux Disease(GERD), Hyperlipidemia, Hypertension Denies:: Cancer, Diabetes Mellitus Type 1, Diabetes Mellitus Type 2, Internal Pacemaker, Lung Disease, MRSA, Seizures Other Medical History: Reports: Anemia, Arthritis, Liver Disease. Denies: Blood Transfusion Reaction Laterality Cases: Bilateral: Arthroscopy Knee Other Surgeries: Yes: Cardiac Catheterization, Colonoscopy, EGD. No: Pacemaker Amputation: No Fractures: No - Social History Smoking Status: Never smoker Alcohol Intake: never Alcohol Intake Frequency:: other Substance Use Type: denies use Occupational Status: employed Housing: house Household Members: spouse Family Hx:: Anemia, Cancer, Coronary Artery Disease, Diabetes, Heart Attack ROS Obtained: Yes All systems reviewed & no additional complaints - Constitutional Constitutional: Denies fever(s), Reports weakness - Eyes Eyes: Denies change in vision - ENT Ears, Nose, Mouth, and Throat: Denies sore throat - Cardiovascular Cardiovascular: Denies chest pain - Respiratory Respiratory: No cough - Gastrointestinal Gastrointestingal: Reports: as per HPI, abdominal pain, nausea, vomiting. Denies: diarrhea - Genitourinary Male Genitourinary: Denies hematuria - Musculoskeletal Musculoskeletal: Denies joint pain, Denies joint swelling - Integumentary/Breasts Skin/Breast: Denies rash - Neurologic Neurologic: Denies seizure-like activity Physical Exam - General General appearance: alert, obese - Head Head exam: normocephalic - Eye Eye exam: Present: PERRL, EOMI. Absent: scleral icterus - ENT ENT exam: Present: mucous membranes dry - Neck Neck exam: Present: trachea midline - Respiratory Respiratory exam: Present: normal lung sounds bilaterally. Absent: respiratory distress - Cardiovascular Cardiovascular exam: Present: regular rate, systolic murmur - Abdominal Exam Abdominal exam: Present: soft, tenderness, diminished bowel sounds Abdominal tenderness: Present: LLQ, moderate - Extremities Exam Extremities exam: Present: full ROM - Neurological Exam Neurological exam: Present: alert, CN II-XII intact - Psychiatric Psychiatric exam: Present: normal affect - Skin Skin exam: Absent: rash
[2019-02-16 02:16] LABS: Calcium 8.7 mg/dL (8.5-10.1)
[2019-02-16 03:03] LABS: Erythrocyte Sedimentation Rate > 140 mm/hr (0-20)
[2019-02-16 06:27] LABS: Albumin Level 1.9 gm/dL (3.4-5.0); Albumin/Globulin Ratio 0.6 (1.1-1.8); Bilirubin,Total 0.7 mg/dL (0.2-1.0); Calcium 7.9 mg/dL (8.5-10.1); Globulin 3.3 gm/dl (1.3-3.2); Total Protein,Serum 5.2 gm/dL (6.4-8.2)
--- NOTE | 2019-02-16 07:53 | Pharmacy Consult Notes ---
[facility] Pharmacy VTE Monitoring - Patient Demographics Admission date: 02/16/19 Report Date: 02/16/19 Time: 07:53 Allergies/Adverse Reactions: Patient Allergies ciprofloxacin [From Cipro] Allergy (Unknown, Verified 02/16/19 01:47) Unknown allergy reaction chicken derived Allergy (Verified 02/16/19 01:47) Difficulty Breathing Height: 1.75 m Weight: 116.148 kg Patient Problems: Current Active Problems Abdominal pain (Acute) Duodenitis (Acute) Splenomegaly (Acute) Anemia (Acute) Orthostatic dizziness (Acute) - VTE Risk Labs: VTE Related Lab Results Hgb 8.4 g/dL (14.1-18.0) L 02/16/19 01:30 Hct 26.2 % (42.0-52.0) L 02/16/19 01:30 Plt Count 168 K/mm3 (142-424) D 02/16/19 01:30 BUN 38 mg/dL (7-18) H 02/16/19 06:00 Creatinine 1.16 mg/dL (0.70-1.30) 02/16/19 06:00 Estimated Creat Clear 104 mL/min (50-200) 02/16/19 06:00 Was VTE Risk Assessment Performed: Yes VTE Score: 5 VTE Risk Level: Low Risk - Prophylaxis VTE Prophylaxis Ordered?: Yes Types of VTE Prophylaxis: TEDS Knee High Location of Applied Device: Bilateral Lower Extremeties - VTE Diagnosis Confirmed Treatment or plan recommended: Continue Current Treatment
--- NOTE | 2019-02-16 09:03 | History & Physical Report ---
*Admission Date: 02/16/19 *Chief complaint: Abd pain, vomiting, anemia *History of present illness: 63-year-old white male with history of nonalcoholic steatohepatitis/very mild cirrhosis, with history of esophagitis in the past, who saw me early this week for vomiting with evidence of hematemesis that sounded like a typical viral gastroenteritis complicated by perhaps esophageal irritation whose labs earlier this week other than a mild anemia were essentially normal. Patient improved after n.p.o. status and clear liquids and was feeling better and actually went to work. He resumed a normal diet and approximately 12 to 24 hours later began to have significant symptoms again with significant abdominal pain, cramping, retching and the vomiting of once again black type liquid consistent with possible old blood. No actual coffee grounds and no bright red blood. No significant diarrhea although has had some black discoloration to his stools. Significant discomfort and orthostasis type symptoms, came to the emergency department early this morning. ER work-up showed anemia, evidence of mild dehydration and CT scan showed evidence of his chronic cirrhosis issues, but also showed evidence of possible SMA occlusion versus possible thrombus. Patient is n.p.o., and now has been hospitalized awaiting further diagnostic testing. He feels much better after IV fluids and n.p.o. status. [facility] History I have reviewed the patient's past medical history: Yes Medical History: Reports:: Asthma, Cerebrovascular Accident, Gastroesophageal Reflux Disease(GERD), Hyperlipidemia, Hypertension Denies:: Cancer, Diabetes Mellitus Type 1, Diabetes Mellitus Type 2, Internal Pacemaker, Lung Disease, MRSA, Seizures *Have you ever received a pneumonia vaccine?: No *Have you received a flu vaccine this season?: No Other Medical History: Reports: Anemia, Arthritis, Liver Disease. Denies: Blood Transfusion Reaction Laterality Cases: Bilateral: Arthroscopy Knee, Other Other Surgeries: Yes: Cardiac Catheterization, Colonoscopy, EGD. No: Pacemaker Amputation: No Fractures: No - *Social History Educational Level: Completed College Smoking Status: Never smoker Alcohol Intake: former Alcohol Intake Frequency:: other Substance Use Type: denies use *Occupational Status:: employed Housing: house Household Members: spouse *Travel in the last 8 weeks: Inside the [facility] Family Hx:: Anemia, Cancer, Coronary Artery Disease, Diabetes, Heart Attack Review of Systems - Review of Systems Review of systems:: pertinent systems reviewed and negative unless documented below - Constitutional Reports anorexia, Reports fatigue - Eyes Denies blind spots, Denies blurry vision, Denies bulging eyes - ENT Denies abnormal hearing, Denies bleeding gums - *Cardiovascular Denies chest pain, Denies excessive sweating, Denies generalized swelling, Denies lightheadedness - *Respiratory Denies change in phlegm color, Denies shortness of breath with activity, Denies coughing up blood - *Gastrointestinal Reports abdominal pain, Reports belching, Reports bloating, Reports coffee ground vomit, Reports black, tarry stools, Reports nausea, Denies excessive passing of gas, Denies bright, red blood in stools - *Genitourinary Denies difficulty urinating - *Musculoskeletal Denies abnormal walking - Integumentary/Breasts Denies acne, Denies change in skin color - *Neurologic Reports weakness, Denies abnormal walking, Denies behavioral changes, Denies burning sensations, Denies seizure-like activity Meds Home Medications Medication Instructions Recorded Confirmed Type aspirin 81 mg tablet,delayed 81 mg PO DAILY 03/17/17 02/16/19 History release atorvastatin 40 mg tablet 40 mg PO HS 03/17/17 02/16/19 History lisinopril 10 mg tablet 10 mg PO DAILY 03/17/17 02/16/19 History [id number]-uih-ssgyg acid 300 1 tab PO DAILY 02/24/18 02/16/19 History mcg-lycopene 600 mcg-lutein 300 mcg tablet Budesonide/Formoterol Fumarate 2 puff IH BID 03/14/18 02/16/19 History [Symbicort 160-4.5 Mcg Inhaler] Ferrous Sulfate [High Potency Iron] 27 mg PO DAILY 03/14/18 02/16/19 History nadoloL [Corgard 20mg tablet] 20 mg PO DAILY 03/14/18 02/16/19 History Tamsulosin HCl [Flomax 0.4mg 0.4 mg PO DAILY 03/15/18 02/16/19 History capsule] Sod Picosulf/Mag Ox/Citric AC 1 packet PO DAILY 07/14/18 02/16/19 History [Prepopik] Allergies Allergy/AdvReac Type Severity Reaction Status Date / Time ciprofloxacin [From Cipro] Allergy Unknown Unknown Verified 02/16/19 01:47 allergy reaction chicken derived Allergy Difficulty Verified 01/09/20 01:47 Breathing Exam Vital signs and Labs for Last 24 Hours: Temp Pulse Resp BP Pulse Ox 98.1 F 90 16 119/56 L 99 02/16/19 05:39 02/16/19 06:33 02/16/19 05:39 02/16/19 05:39 02/16/19 05:39 Laboratory Results - last 24 hr 02/16/19 01:25: Urine Color Yellow, Urine Appearance Clear, Urine pH 5.5, Ur Specific [place] 1.025, Urine Protein Negative, Urine Glucose (UA) Negative, Urine Ketones Negative, Urine Blood Negative, Urine Nitrate Negative, Urine Bilirubin Negative, Urine Urobilinogen 0.2, Ur Leukocyte Esterase Negative, Urine WBC 3-5, Urine Bacteria 1+, Urine Mucus 1+ 02/16/19 01:30: WBC 8.8 D, RBC 3.00 L, Hgb 8.4 L, Hct 26.2 L, MCV 87.3, MCH 27.9, MCHC 31.9, RDW 16.8, Plt Count 168 D, MPV 9.9, Neut % (Auto) 69.0, Lymph % (Auto) 21.7, [place] % (Auto) 4.6, Eos % (Auto) 4.5, Baso % (Auto) 0.3, Neut # (Auto) 6.1, Lymph # (Auto) 1.9, [place] # (Auto) 0.4, Eos # (Auto) 0.4, Baso # (Auto) 0.0, ESR > 140 H 02/16/19 01:30: Sodium 139, Potassium 3.9, Chloride 107, Carbon Dioxide 24, Anion Gap 11.9, BUN 36 H D, Creatinine 1.08, Estimated Creat Clear 112, Estimated GFR 69, Est GFR ( Amer) 83, Glucose 110 H, Calcium 8.7 D, Total Bilirubin 0.9, AST 36, ALT 38, Alkaline Phosphatase 68, Troponin I < 0.02, C-Reactive Protein < 0.2, Total Protein 6.9, Albumin 2.6 L, Globulin 4.3 H, Albumin/Globulin Ratio 0.6 L, Amylase 45, Lipase 256 02/16/19 03:06: Gastric Occult Blood Positive 02/16/19 03:25: Crossmatch (AHG) See Detail 02/16/19 03:25: Blood Type A Positive, Antibody Screen Negative, Crossmatch (AHG) See Detail 02/16/19 06:00: Troponin I 0.03 02/16/19 06:00: Sodium 140, Potassium 4.0, Chloride 111 H, Carbon Dioxide 22, Anion Gap 11.0, BUN 38 H, Creatinine 1.16, Estimated Creat Clear 104, Estimated GFR 63, Est GFR ( Amer) 76, Glucose 113 H, Calcium 7.9 L, Total Bilirubin 0.7, AST 28, ALT 29, Alkaline Phosphatase 52, Total Protein 5.2 L, Albumin 1.9 L D, Globulin 3.3 H, Albumin/Globulin Ratio 0.6 L I & O for Last 24 hours: Intake & Output 02/13/19 02/14/19 02/15/19 02/16/19 11:59 11:59 11:59 11:59 Intake Total 3500 / 3500 Balance 3500 / 3500 Weight 256 lb 1 oz Narrative: Patient is pleasant. Alert, oriented x3. Appears pale but patient has significant fair skin and light coloration to begin with. no evidence of cardiopulmonary distress. Lungs are clear bilaterally. Abdomen is soft, no tenderness. No masses noted. No stigmata of liver disease. No edema or clubbing. Neurologically intact. Assessment and Plan (1) Abdominal pain Current visit: Yes Status: Acute Qualifiers: Abdominal location: lower abdomen, unspecified Qualified Code(s): R10.30 - Lower abdominal pain, unspecified Category: Medical Code(s): R10.9 - Unspecified abdominal pain Possible SMA occlusion?. Repeat CT scan with three-phase contrast as recommended by radiology. Coagulation work-up as ordered and lab orders. (2) Anemia Current visit: Yes Status: Acute Qualifiers: Anemia type: unspecified type Qualified Code(s): D64.9 - Anemia, unspecified Category: Medical Code(s): D64.9 - Anemia, unspecified Possibly secondary to blood loss. Check CBC again this evening. (3) Duodenitis Current visit: Yes Status: Acute Category: Medical Code(s): K29.80 - Duodenitis without bleeding Possibly from low flow/ischemic issues? I will ask Dr. Bhardwaj who has seen this patient multiple times in consultation for a variety of issues to be involved in his care as well. (4) Orthostatic dizziness Current visit: Yes Status: Acute Category: Medical Code(s): R42 - Dizziness and giddiness Improving after IV fluids (5) Anemia, iron deficiency Current visit: No Status: Acute Qualifiers: Iron deficiency anemia type: unspecified iron deficiency Qualified Code(s): D50.9 - Iron deficiency anemia, unspecified Category: Medical Code(s): D50.9 - Iron deficiency anemia, unspecified
--- NOTE | 2019-02-16 12:10 | Consult Report ---
*Admission Date: 02/16/19 *Reason for consult:: Possible upper gastrointestinal hemorrhage *History of present illness: This is a 63-year-old gentleman seen in consultation from Dr. Dykes for evaluation regarding possible upper gastrointestinal hemorrhage. He initially presented earlier this week with signs and symptoms consistent with possible viral gastroenteritis. He did develop some hematemesis and was found to be somewhat anemic. He was stable and initially treated as an outpatient. He presented once again after resuming regular diet with worsening symptomatology. He was found to be somewhat more anemic and subsequently admitted for ongoing evaluation and management. Evaluation through the emergency department included a CT scan that revealed changes consistent with possible SMV thrombus. Recommendations for three-phase repeat were made. Review of Systems - Constitutional Denies chills - Eyes Denies change in vision - ENT Denies change in voice - *Cardiovascular Denies fainting - *Respiratory Denies cough - *Genitourinary Denies painful urination - *Musculoskeletal Denies back pain - *Neurologic Reports weakness, Denies abnormal walking, Denies abnormal hearing, Denies behavioral changes, Denies burning sensations, Denies seizure-like activity - Psychiatric Denies anxiety - Hematologic/Lymphatic Denies easy bruising [facility] History Medical History: Reports:: Asthma, Cerebrovascular Accident, Gastroesophageal Reflux Disease(GERD), Hyperlipidemia, Hypertension Denies:: Cancer, Diabetes Mellitus Type 1, Diabetes Mellitus Type 2, Internal Pacemaker, Lung Disease, MRSA, Seizures *Have you ever received a pneumonia vaccine?: No *Have you received a flu vaccine this season?: No Other Medical History: Reports: Anemia, Arthritis, Liver Disease. Denies: Blood Transfusion Reaction Laterality Cases: Bilateral: Arthroscopy Knee, Other Other Surgeries: Yes: Cardiac Catheterization, Colonoscopy, EGD. No: Pacemaker Amputation: No Fractures: No - *Social History Educational Level: Completed College Smoking Status: Never smoker Alcohol Intake: former Alcohol Intake Frequency:: other Substance Use Type: denies use *Occupational Status:: employed Housing: house Household Members: spouse *Travel in the last 8 weeks: Inside the [facility] Family Hx:: Anemia, Cancer, Coronary Artery Disease, Diabetes, Heart Attack Meds Home Medications Medication Instructions Recorded Confirmed Type aspirin 81 mg tablet,delayed 81 mg PO DAILY 03/17/17 02/16/19 History release atorvastatin 40 mg tablet 40 mg PO HS 03/17/17 02/16/19 History lisinopril 10 mg tablet 10 mg PO DAILY 03/17/17 02/16/19 History yqzjezjf-hjv-quinf acid 300 1 tab PO DAILY 02/24/18 02/16/19 History mcg-lycopene 600 mcg-lutein 300 mcg tablet Budesonide/Formoterol Fumarate 2 puff IH BID 03/14/18 02/16/19 History [Symbicort 160-4.5 Mcg Inhaler] Ferrous Sulfate [High Potency Iron] 27 mg PO DAILY 03/14/18 02/16/19 History nadoloL [Corgard 20mg tablet] 20 mg PO DAILY 03/14/18 02/16/19 History Tamsulosin HCl [Flomax 0.4mg 0.4 mg PO DAILY 03/15/18 02/16/19 History capsule] Famotidine [Pepcid 20mg Tablet] 20 mg PO BID 02/16/19 02/16/19 History Allergies Allergy/AdvReac Type Severity Reaction Status Date / Time ciprofloxacin [From Cipro] Allergy Unknown Unknown Verified 02/16/19 01:47 allergy reaction chicken derived Allergy Difficulty Verified 02/16/19 01:47 Breathing Exam Vital signs and Labs for Last 24 Hours: Temp Pulse Resp BP Pulse Ox 98.1 F 91 H 18 98/46 L 100 02/16/19 08:00 02/16/19 08:00 02/16/19 08:00 02/16/19 08:00 02/16/19 08:00 Laboratory Results - last 24 hr 02/16/19 01:25: Urine Color Yellow, Urine Appearance Clear, Urine pH 5.5, Ur Specific [place] 1.025, Urine Protein Negative, Urine Glucose (UA) Negative, Urine Ketones Negative, Urine Blood Negative, Urine Nitrate Negative, Urine Bilirubin Negative, Urine Urobilinogen 0.2, Ur Leukocyte Esterase Negative, Urine WBC 3-5, Urine Bacteria 1+, Urine Mucus 1+ 02/16/19 01:30: WBC 8.8 D, RBC 3.00 L, Hgb 8.4 L, Hct 26.2 L, MCV 87.3, MCH 27.9, MCHC 31.9, RDW 16.8, Plt Count 168 D, MPV 9.9, Neut % (Auto) 69.0, Lymph % (Auto) 21.7, [place] % (Auto) 4.6, Eos % (Auto) 4.5, Baso % (Auto) 0.3, Neut # (Auto) 6.1, Lymph # (Auto) 1.9, [place] # (Auto) 0.4, Eos # (Auto) 0.4, Baso # (Auto) 0.0, ESR > 140 H 02/16/19 01:30: Sodium 139, Potassium 3.9, Chloride 107, Carbon Dioxide 24, Ani on Gap 11.9, BUN 36 H D, Creatinine 1.08, Estimated Creat Clear 112, Estimated GFR 69, Est GFR ( Amer) 83, Glucose 110 H, Calcium 8.7 D, Total Bilirubin 0.9, AST 36, ALT 38, Alkaline Phosphatase 68, Troponin I < 0.02, C- Reactive Protein < 0.2, Total Protein 6.9, Albumin 2.6 L, Globulin 4.3 H, Albumin/Globulin Ratio 0.6 L, Amylase 45, Lipase 256 02/16/19 03:06: Gastric Occult Blood Positive 02/16/19 03:25: Crossmatch (G) See Detail 02/16/19 03:25: Blood Type A Positive, Antibody Screen Negative, Crossmatch ([facility]) See Detail 02/16/19 06:00: Troponin I 0.03 02/16/19 06:00: Sodium 140, Potassium 4.0, Chloride 111 H, Carbon Dioxide 22, Anion Gap 11.0, BUN 38 H, Creatinine 1.16, Estimated Creat Clear 104, Estimated GFR 63, Est GFR ( Amer) 76, Glucose 113 H, Calcium 7.9 L, Total Bilirubin 0.7, AST 28, ALT 29, Alkaline Phosphatase 52, Total Protein 5.2 L, Albumin 1.9 L D, Globulin 3.3 H, Albumin/Globulin Ratio 0.6 L 02/16/19 09:30: Troponin I 0.04 I & O for Last 24 hours: Intake & Output 02/14/19 02/15/19 02/16/19 02/17/19 11:59 11:59 11:59 11:59 Intake Total 3500 / 3500 Balance 3500 / 3500 Weight 256 lb 1 oz - Constitutional no acute distress - *Routine Respiratory Exam Absent: respiratory distress - *Routine Cardiovascular Exam Present: RRR - *Routine Abdominal Exam Present: soft Results - Labs 02/16/19 01:30 02/16/19 06:00 Laboratory Results - last 24 hr 02/16/19 01:25: Urine Color Yellow, Urine Appearance Clear, Urine pH 5.5, Ur Specific [place] 1.025, Urine Protein Negative, Urine Glucose (UA) Negative, Urine Ketones Negative, Urine Blood Negative, Urine Nitrate Negative, Urine Bilirubin Negative, Urine Urobilinogen 0.2, Ur Leukocyte Esterase Negative, Urine WBC 3-5, Urine Bacteria 1+, Urine Mucus 1+ 02/16/19 01:30: WBC 8.8 D, RBC 3.00 L, Hgb 8.4 L, Hct 26.2 L, MCV 87.3, MCH 27.9, MCHC 31.9, RDW 16.8, Plt Count 168 D, MPV 9.9, Neut % (Auto) 69.0, Lymph % (Auto) 21.7, [place] % (Auto) 4.6, Eos % (Auto) 4.5, Baso % (Auto) 0.3, Neut # (Auto) 6.1, Lymph # (Auto) 1.9, [place] # (Auto) 0.4, Eos # (Auto) 0.4, Baso # (Auto) 0.0, ESR > 140 H 02/16/19 01:30: Sodium 139, Potassium 3.9, Chloride 107, Carbon Dioxide 24, Anion Gap 11.9, BUN 36 H D, Creatinine 1.08, Estimated Creat Clear 112, Estimated GFR 69, Est GFR ( Amer) 83, Glucose 110 H, Calcium 8.7 D, Total Bilirubin 0.9, AST 36, ALT 38, Alkaline Phosphatase 68, Troponin I < 0.02, C-Reactive Protein < 0.2, Total Protein 6.9, Albumin 2.6 L, Globulin 4.3 H, Albumin/Globulin Ratio 0.6 L, Amylase 45, Lipase 256 02/16/19 03:06: Gastric Occult Blood Positive 02/16/19 03:25: Crossmatch (G) See Detail 02/16/19 03:25: Blood Type A Positive, Antibody Screen Negative, Crossmatch ([facility]) See Detail 02/16/19 06:00: Troponin I 0.03 02/16/19 06:00: Sodium 140, Potassium 4.0, Chloride 111 H, Carbon Dioxide 22, Anion Gap 11.0, BUN 38 H, Creatinine 1.16, Estimated Creat Clear 104, Estimated GFR 63, Est GFR ( Amer) 76, Glucose 113 H, Calcium 7.9 L, Total Bilirubin 0.7, AST 28, ALT 29, Alkaline Phosphatase 52, Total Protein 5.2 L, Albumin 1.9 L D, Globulin 3.3 H, Albumin/Globulin Ratio 0.6 L 02/16/19 09:30: Troponin I 0.04 - Imaging CT scan - abdomen: report reviewed, image reviewed CT scan - pelvis: report reviewed, image reviewed Additional studies: Three-phase repeat CT scan confirms SMV thrombus Assessment and Plan (1) Abdominal pain Current visit: Yes Status: Acute Qualifiers: Abdominal location: lower abdomen, unspecified Qualified Code(s): R10.30 - Lower abdominal pain, unspecified Category: Medical Code(s): R10.9 - Unspecified abdominal pain (2) Anemia Current visit: Yes Status: Acute Qualifiers: Anemia type: unspecified type Qualified Code(s): D64.9 - Anemia, unspecified Category: Medical Code(s): D64.9 - Anemia, unspecified (3) Duodenitis Current visit: Yes Status: Acute Category: Medical Code(s): K29.80 - Duodenitis without bleeding (4) Orthostatic dizziness Current visit: Yes Status: Acute Category: Medical Code(s): R42 - Dizziness and giddiness (5) Anemia, iron deficiency Current visit: No Status: Acute Qualifiers: Iron deficiency anemia type: unspecified iron deficiency Qualified Code(s): D50.9 - Iron deficiency anemia, unspecified Category: Medical Code(s): D50.9 - Iron deficiency anemia, unspecified (6) Superior mesenteric vein thrombosis Current visit: Yes Status: Acute Category: Medical Code(s): K55.069 - Acute infarction of intestine, part and extent unspecified Need for anticoagulation complicated by likely recent upper gastrointestinal hemorrhage. I recommend transfer to tertiary care center for ongoing evaluation and management.
--- NOTE | 2019-02-16 12:52 | Discharge Summary ---
General - General Admission date:: 02/16/19 Discharge date: 02/16/19 HPI HPI: 63-year-old white male with history of nonalcoholic steatohepatitis/very mild cirrhosis, with history of esophagitis in the past, who saw me early this week for vomiting with evidence of hematemesis that sounded like a typical viral gastroenteritis complicated by perhaps esophageal irritation whose labs earlier this week other than a mild anemia were essentially normal. Patient improved after n.p.o. status and clear liquids and was feeling better and actually went to work. He resumed a normal diet and approximately 12 to 24 hours later began to have significant symptoms again with significant abdominal pain, cramping, retching and the vomiting of once again black type liquid consistent with possible old blood. No actual coffee grounds and no bright red blood. No significant diarrhea although has had some black discoloration to his stools. Significant discomfort and orthostasis type symptoms, came to the emergency department early this morning. ER work-up showed anemia, evidence of mild dehydration and CT scan showed evidence of his chronic cirrhosis issues, but also showed evidence of possible SMV occlusion versus possible thrombus. Patient is n.p.o., and now has been hospitalized awaiting further diagnostic testing. He feels much better after IV fluids and n.p.o. status. Hospital Course Hospital Course: Patient was admitted and hydrated, felt better. Made n.p.o. CT scanning as noted in HPI was suspicious for SMV thrombus and repeat CT with and without contrast along with three-phase scanning was done which confirmed the diagnosis of SMV thrombus. General surgery had seen patient, felt that he was not actively bleeding but would need tertiary care evaluation for a litany of issues, namely possible need for interventional radiology services, vascular surgery services and anticoagulation therapy with possible need for urgent endoscopy on the remote chance he would bleed. I discussed the case with internal medicine at , Dr. Silverman, and he has been accepted in transfer to the [facility]. In the meantime we will continue hydration, and cautious anticoagulation with Lovenox 1 mg/kg twice daily, I have ordered his first dose. Objective Vital signs: Temp Pulse Resp BP Pulse Ox 98.0 F 91 H 20 102/48 L 100 02/16/19 12:00 02/16/19 12:00 02/16/19 12:00 02/16/19 12:00 02/16/19 12:00 Narrative: Patient is alert, unchanged from previous exam. Oriented x3. No JVD. Abdomen is obese, soft, nontender. Lungs are clear, heart rate regular. No perfusion deficits. Results Labs on day of discharge: Labs from last 24 hours 02/16/19 02/16/19 02/16/19 12:00 09:30 06:00 WBC RBC Hgb Hct MCV MCH MCHC RDW Plt Count MPV Neut % (Auto) Lymph % (Auto) [place] % (Auto) Eos % (Auto) Baso % (Auto) Neut # (Auto) Lymph # (Auto) [place] # (Auto) Eos # (Auto) Baso # (Auto) ESR Sodium 140 Potassium 4.0 Chloride 111 H Carbon Dioxide 22 Anion Gap 11.0 BUN 38 H Creatinine 1.16 Estimated Creat Clear 104 Estimated GFR 63 Est GFR ( Amer) 76 Glucose 113 H Calcium 7.9 L Total Bilirubin 0.7 AST 28 ALT 29 Alkaline Phosphatase 52 Troponin I 0.04 C-Reactive Protein Total Protein 5.2 L Albumin 1.9 L D Globulin 3.3 H Albumin/Globulin Ratio 0.6 L Amylase Lipase Urine Color Urine Appearance Urine pH Ur Specific [place] Urine Protein Urine Glucose (UA) Urine Ketones Urine Blood Urine Nitrate Urine Bilirubin Urine Urobilinogen Ur Leukocyte Esterase Urine WBC Urine Bacteria Urine Mucus Gastric Occult Blood Stool Occult Blood Positive A Blood Type Antibody Screen Crossmatch ([facility]) 02/16/19 02/16/19 02/16/19 06:00 03:25 03:25 WBC RBC Hgb Hct MCV MCH MCHC RDW Plt Count MPV Neut % (Auto) Lymph % (Auto) [place] % (Auto) Eos % (Auto) Baso % (Auto) Neut # (Auto) Lymph # (Auto) [place] # (Auto) Eos # (Auto) Baso # (Auto) ESR Sodium Potassium Chloride Carbon Dioxide Anion Gap BUN Creatinine Estimated Creat Clear Estimated GFR Est GFR ( Amer) Glucose Calcium Total Bilirubin AST ALT Alkaline Phosphatase Troponin I 0.03 C-Reactive Protein Total Protein Albumin Globulin Albumin/Globulin Ratio Amylase Lipase Urine Color Urine Appearance Urine pH Ur Specific [place] Urine Protein Urine Glucose (UA) Urine Ketones Urine Blood Urine Nitrate Urine Bilirubin Urine Urobilinogen Ur Leukocyte Esterase Urine WBC Urine Bacteria Urine Mucus Gastric Occult Blood Stool Occult Blood Blood Type A Positive Antibody Screen Negative Crossmatch ([facility]) See Detail See Detail 02/16/19 02/16/19 02/16/19 03:06 01:30 01:30 WBC 8.8 D RBC 3.00 L Hgb 8.4 L Hct 26.2 L MCV 87.3 MCH 27.9 MCHC 31.9 RDW 16.8 Plt Count 168 D MPV 9.9 Neut % (Auto) 69.0 Lymph % (Auto) 21.7 [place] % (Auto) 4.6 Eos % (Auto) 4.5 Baso % (Auto) 0.3 Neut # (Auto) 6.1 Lymph # (Auto) 1.9 [place] # (Auto) 0.4 Eos # (Auto) 0.4 Baso # (Auto) 0.0 ESR > 140 H Sodium 139 Potassium 3.9 Chloride 107 Carbon Dioxide 24 Anion Gap 11.9 BUN 36 H D Creatinine 1.08 Estimated Creat Clear 112 Estimated GFR 69 Est GFR ( Amer) 83 Glucose 110 H Calcium 8.7 D Total Bilirubin 0.9 AST 36 ALT 38 Alkaline Phosphatase 68 Troponin I < 0.02 C-Reactive Protein < 0.2 Total Protein 6.9 Albumin 2.6 L Globulin 4.3 H Albumin/Globulin Ratio 0.6 L Amylase 45 Lipase 256 Urine Color Urine Appearance Urine pH Ur Specific [place] Urine Protein Urine Glucose (UA) Urine Ketones Urine Blood Urine Nitrate Urine Bilirubin Urine Urobilinogen Ur Leukocyte Esterase Urine WBC Urine Bacteria Urine Mucus Gastric Occult Blood Positive Stool Occult Blood Blood Type Antibody Screen Crossmatch ([facility]) 02/16/19 01:25 WBC RBC Hgb Hct MCV MCH MCHC RDW Plt Count MPV Neut % (Auto) Lymph % (Auto) [place] % (Auto) Eos % (Auto) Baso % (Auto) Neut # (Auto) Lymph # (Auto) [place] # (Auto) Eos # (Auto) Baso # (Auto) ESR Sodium Potassium Chloride Carbon Dioxide Anion Gap BUN Creatinine Estimated Creat Clear Estimated GFR Est GFR ( Amer) Glucose Calcium Total Bilirubin AST ALT Alkaline Phosphatase Troponin I C-Reactive Protein Total Protein Albumin Globulin Albumin/Globulin Ratio Amylase Lipase Urine Color Yellow Urine Appearance Clear Urine pH 5.5 Ur Specific [place] 1.025 Urine Protein Negative Urine Glucose (UA) Negative Urine Ketones Negative Urine Blood Negative Urine Nitrate Negative Urine Bilirubin Negative Urine Urobilinogen 0.2 Ur Leukocyte Esterase Negative Urine WBC 3-5 Urine Bacteria 1+ Urine Mucus 1+ Gastric Occult Blood Stool Occult Blood Blood Type Antibody Screen Crossmatch (G) DS: Diagnosis - Discharge Diagnosis (1) Abdominal pain Status: Acute (2) Anemia Status: Acute (3) Duodenitis Status: Acute (4) Orthostatic dizziness Status: Acute (5) Anemia, iron deficiency Status: Acute (6) Superior mesenteric vein thrombosis Status: Acute Discharge Plan - Patient Discharge Instructions ACTIVITY: Continue current activity DIET: continue same diet Patient Instructions: Anemia, DI for Gastritis, DI for Abdominal Pain-Adult - Follow up Plan Disposition: Xfer Short-Term Hosp Home Medications: Home Medications Medication Instructions Recorded Confirmed Type aspirin 81 mg tablet,delayed 81 mg PO DAILY 03/17/17 02/16/19 History release atorvastatin 40 mg tablet 40 mg PO HS 03/17/17 02/16/19 History lisinopril 10 mg tablet 10 mg PO DAILY 03/17/17 02/16/19 History yvsffhjq-lwi-umcgt acid 300 1 tab PO DAILY 02/24/18 02/16/19 History mcg-lycopene 600 mcg-lutein 300 mcg tablet Budesonide/Formoterol Fumarate 2 puff IH BID 03/14/18 02/16/19 History [Symbicort 160-4.5 Mcg Inhaler] Ferrous Sulfate [High Potency Iron] 27 mg PO DAILY 03/14/18 02/16/19 History nadoloL [Corgard 20mg tablet] 20 mg PO DAILY 03/14/18 02/16/19 History Tamsulosin HCl [Flomax 0.4mg 0.4 mg PO DAILY 03/15/18 02/16/19 History capsule] Famotidine [Pepcid 20mg Tablet] 20 mg PO BID 02/16/19 02/16/19 History Prescriptions/Medication Reconciliation: Continued aspirin 81 mg tablet,delayed release 81 mg PO DAILY atorvastatin 40 mg tablet 40 mg PO HS lisinopril 10 mg tablet 10 mg PO DAILY gvmaetct-wvi-fcbfp acid 300 mcg-lycopene 600 mcg-lutein 300 mcg tablet 1 tab PO DAILY Budesonide/Formoterol Fumarate [Symbicort 160-4.5 Mcg Inhaler] 2 puff IH BID Tamsulosin HCl [Flomax 0.4mg capsule] 0.4 mg PO DAILY nadoloL [Corgard 20mg tablet] 20 mg PO DAILY Ferrous Sulfate [High Potency Iron] 27 mg PO DAILY Famotidine [Pepcid 20mg Tablet] 20 mg PO BID - Problem Reconciliation Problems Reviewed?: Yes
--- NOTE | 2019-02-16 12:56 | Electrocardiograph Report ---
APPROVED REPORT Exam: Resting ECG HR:101 bpm ECG Measurements Heart Rate 101 AXES MO 168 P 39 QRSd 98 QRS -27 QT 342 T67 QTc 443 <Conclusion> Sinus tachycardia Otherwise normal ECG Electronically signed by : Malik Dykes, 02/16/2019 12:56:05
[2019-02-19 17:58] LABS: Anti-Thrombin III Antigen 51 % (72-124); Protein C Functional 43 % (73-180); Protein S Functional 32 % (63-140)
== END 2019-02-16 23:03 | disposition short-term general hospital (02) ==
LOC: ER 01:16 → 2ND 01:16
PROVIDERS: ADMIT Emergency Medicine; ATTEND Internal Medicine Adolescent Medicine
CPT/HCPCS: 36415; 71010; 71045; 74177; 74178; 80053; 81001; 81241; 82150; 82272; 83690; 84484; 85025; 85301; 85302; 85306; 85651; 86140; 86850; 93005; 96365; 96367; 96375; 99284; G0328; G0378; J2405; Q9967

== ENCOUNTER → 2019-04-07 12:18 | Outpatient (CLI) | payer BC, SELFPAY ==
[2019-04-07 13:02] LABS: Basophils % 0.5 % (0.1-2.0); Eosinophils # 0.2 K/mm3 (0.0-0.4); Eosinophils % 7.3 % (0.1-12.0); Lymphocytes # 0.5 K/mm3 (0.7-4.5); Lymphocytes % 20.7 % (10-50); Mean Corpuscular HGB Conc 30.3 g/dL (31.8-35.4); Mean Corpuscular Hemoglobin 24.9 pg (27.0-31.2); Mean Corpuscular Volume 82.3 fl (80-94); Mean Platelet Volume 10.4 fl (7.4-10.4); Monocytes # 0.1 K/mm3 (0.1-1.0); Neutrophils # 1.5 K/mm3 (1.8-7.8); Neutrophils % 65.4 % (37.0-80.0); Platelet Count 71 K/mm3 (142-424); Red Blood Count 3.36 M/mm3 (4.60-6.20); Red Cell Distribution Width 14.8 % (11.5-17.5); White Blood Count 2.3 K/mm3 (4.8-10.8)
[2019-04-07 13:19] LABS: Hematocrit 27.9 % (42.0-52.0)
[2019-04-07 13:23] LABS: Hemoglobin 8.5 g/dL (14.1-18.0)
[2019-04-07 14:45] LABS: Alanine Aminotransferase 43 U/L (12-78); Albumin Level 3.9 g/dl (3.5-5.0); Albumin/Globulin Ratio 0.8 (1.1-1.8); Alkaline Phosphatase 102 U/L (38-126); Anion Gap 12.5 mEq/L (5-15); Aspartate Amino Transferase 62 U/L (17-59); Bilirubin,Total 1.1 mg/dl (0.2-1.3); Blood Urea Nitrogen 15 mg/dl (9-20); Calcium 9.1 mg/dl (8.4-10.2); Carbon Dioxide 26 mmol/L (22.0-30.0); Chloride 106 mmol/L (98-107); Estimated Glomerular Filt Rate 85 ml/min (>60); GFR (African American) 102 ML/MIN (>60); Globulin 4.6 g/dL (1.3-3.2); Glucose 94 mg/dl (74-100); Potassium 4.5 mmoL/L (3.5-5.1); Sodium 140 mmol/L (136-145); Total Protein,Serum 8.5 g/dl (6.3-8.2)
== END ==
PROVIDERS: Visit Provider Internal Medicine Adolescent Medicine
DX: K74.60 Unspecified cirrhosis of liver (principal); I85.00 Esophageal varices without bleeding
CPT/HCPCS: 36415; 80053; 85025